=== PATIENT | male | born 1935 | race Caucasian/White ===

== ENCOUNTER 2018-12-27 22:25 | Emergency (ER) | payer MEDICARE, BC ==
[~2018-12-27] VITALS: Ht 172.7 cm; Wt 71.7 kg
[2018-12-27] MEDS ORDERED: SIMVASTATIN 20 MG TABLET PO (22:41)
[2018-12-27] MEDS ORDERED: LEVOTHYROXINE 50 MCG TABLET (22:41)
--- NOTE | 2018-12-27 22:47 | NUR ---
Dr. Dixon at bedside for MSE.
--- NOTE | 2018-12-27 22:56 | NUR ---
Patient discharged to home in stable conditon. Written and verbal after care instructions given. Patient verbalizes understanding of instructions. Pt ambulated out of ER with steady gait, no acute signs of distress, VSS, all belongings taken.
[2018-12-27 22:58] VITALS: BP 116/69
== END 2018-12-27 22:58 | disposition home or self-care (01) ==
LOC: ER 22:28
DX: S00.83XA Contusion of other part of head, initial encounter (principal); E03.9 Hypothyroidism, unspecified; E78.5 Hyperlipidemia, unspecified; Z88.0 Allergy status to penicillin; Z88.2 Allergy status to sulfonamides; Z79.899 Other long term (current) drug therapy; W22.8XXA Striking against or struck by other objects, initial encounter; Y93.89 Activity, other specified; Y92.89 Other specified places as the place of occurrence of the external cause; Y99.8 Other external cause status
CPT/HCPCS: A4663